=== PATIENT | male | born 1980 | race Hispanic/Latino ===

== ENCOUNTER 2017-03-01 05:46 | Emergency (ER) | payer OTHER ==
[~2017-03-01] VITALS: Ht 190.5 cm; Wt 126.1 kg
[~2017-03-01 05:46] MED LIST: AMOXICILLIN500 M3 PO; BACTRIM DS TAB1 EACH PO; BENZONATATE200 M1 PO; FLAG500 PO; IBUPROFEN800 M1 PO; NASONEX17 GM NASB; PERCOCET 5-3251 EACH PO; VENTOLIN HFA18 GM INH
[2017-03-01 05:52] VITALS: BP 132/80
--- NOTE | 2017-03-01 06:14 | ED DYSPNEA/ASTHMA COMPLAINT ---
History of Present Illness General Chief Complaint: General Adult Stated Complaint: URI, CONGESTION, DIFFICULTY URINATING Source: patient Exam Limitations: no limitations Vital Signs & Intake/Output Vital Signs & Intake/Output Vital Signs Date Time Temp Pulse Resp B/P B/P Pulse O2 O2 Flow FiO2 Mean Ox Delivery Rate 03/01 0552 98.4 89 17 132/80 100 Room Air Allergies Coded Allergies: NO KNOWN ALLERGIES (06/21/16) Reconcile Medications Albuterol Sulfate (Proair Hfa) 90 MCG HFA.AER.AD 2 PUF INH Q4-6 PRN PRN DYSPNEA Albuterol Sulfate (Ventolin Hfa) 18 GM HFA.AER.AD 2 PUF INH Q4-6 PRN PRN WHEEZING/SHORTNESS OF BREATH Benzonatate 200 MG CAPSULE 1 CAP PO TID PRN cough Doxycycline Hyclate 100 MG TABLET 1 TAB PO BID PNEUMONIA Ibuprofen 800 MG TABLET 1 TAB PO Q8 PRN PAIN/fevers Methylprednisolone. (Medrol) 4 MG TAB.DS.PK 1 DP PO AD INFLAMMATION 6 on day 1 then reduce by one tablet daily until gone Mometasone Furoate (Nasonex) 17 GM SPRAY.PUMP 2 SPRAY NASB DAILY PRN sinus congestion/inflammation Oxycodone HCl/Acetaminophen (Percocet 5-325 MG Tablet) 1 EACH TABLET 1-2 TAB PO Q6P PRN PAIN Triage Note: PT TO ED C/O URI S/S. STATES THAT IT FEELS LIKE BRONCHITIS. PT ALSO C/O TROUBLE URINATING. FEELS LIKE HE CANNOT GET A STEADY STREAM, ONLY DRIBBLING. PT ALSO C/O R EAR PAIN. PT STATES HE HAS NOT BEEN ABLE TO USE THE BATHROOM OR HAVE A NORMAL BM FOR A WEEK. Triage Nurses Notes Reviewed? yes Onset: Abrupt Duration: day(s): (FEW) Timing: recent history Severity: mild, moderate Activities at Onset: none Associated Symptoms: cough, wheezing, ANXIETY, ANOREXIA, WEIGHT LOSS HPI: This is a 36-year-old male who presents to the ER with chief complaint of cough, shortness of breath and wheezing for the past few days. He states he's been coughing up some dark brown sputum. He wanted but occasionally smokes cigarettes. He also complains of dysuria and feels like he might be getting an internal herpes outbreak. He also feels very anxious and has had a hard time sleeping. He hasn't been eating in the last several weeks because he has been under stress. He states 2 weeks ago the police rated his house and confiscated a lot of his possessions. 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 He states they didn't find anything but took his vehicles and some jewelry. Secondary to that he has been sleeping. Patient denies any sick contacts or travel. He complains of subjective fevers. He states he didn't has been wearing heavy sweaters and using Vicks VapoRub to attempt to sweat out his cold. History of previous bronchitis. Past History Travel History Traveled to [place] past 21 day No Medical History Any Pertinent Medical History? see below for history Neurological: NONE EENT: NONE Cardiovascular: NONE Respiratory: bronchitis Gastrointestinal: NONE Hepatic: NONE Renal: NONE Musculoskeletal: NONE Psychiatric: cannabis use(0.5 ounces per day) Endocrine: NONE Blood Disorders: NONE CROP ROLLER/Reproductive: genital herpes Surgical History Surgical History: N Psychosocial History What is your primary language [place] Island[place] Tobacco Use: Current Not Daily Family History Hx Contributory? No Review of Systems Review of Systems Constitutional: Denies: chills, fever. EENTM: Reports: no symptoms. Respiratory: Reports: cough, short of breath, sputum production. Cardiovascular: Denies: chest pain, palpitations, peripheral edema. GI: Reports: no symptoms. Genitourinary: Reports: dysuria, frequency, pain. Denies: discharge, hematuria. Musculoskeletal: Denies: back pain, muscle pain, muscle stiffness. Skin: Reports: no symptoms. Neurological/Psychological: Reports: anxiety. Hematologic/Endocrine: Denies: bruising, bleeding, polyuria, polydipsia. Immunologic/Allergic: Denies: splenectomy. All Other Systems: Reviewed and Negative Physical Exam Physical Exam General Appearance: well developed/nourished, alert, awake Head: atraumatic, normal appearance Eyes: Bilateral: normal appearance, PERRL, EOMI. Ears, Nose, Throat: normal pharynx, hearing grossly normal Neck: normal inspection, supple, full range of motion Respiratory: decreased breath sounds, wheezing, respiratory distress (MILD) Cardiovascular: regular rate/rhythm Peripheral Pulses: 2+ radial (R), 2+ radial (L) Gastrointestinal: soft, non-tender, NORMAL EXAMINATION, NO TENDERNESS, NO LESIONS, NO DISCHARGE Extremities: normal inspection, normal capillary refill, normal range of motion, no edema Neurologic/Psych: no motor/sensory deficits, awake, alert, oriented x 3, ANXIOUS Skin: intact, normal color, warm/dry Core Measures ACS in differential dx? No Severe Sepsis Present: No Septic Shock Present: No Progress Differential Diagnosis: bronchitis, pneumonia, UTI, HERPES, KIDNEY STONE, STD Plan of Care: Orders Procedure Date/time Status RT ED ORDERS 03/01 613 Active CHLAMYDIA-GC DNA PROBE 03/01 613 Active URINALYSIS 03/01 613 Complete Current Medications Sig/Nic Start time Last Medication Dose Stop Time Status Admin Azithromycin 1,000 MG ONCE ONE 03/01 715 AC (Zithromax) 03/01 716 Ceftriaxone Sodium 250 MG ONCE ONE 03/01 715 UNir (Rocephin) 03/01 716 Laboratory Tests 03/01/17612: Urine Color YEL, Urine Clarity HAZY H, Urine pH 6.5, Ur Specific [place] 1.020, Urine Protein TRACE H, Urine Ketones NEG, Urine Nitrite NEG, Urine Bilirubin NEG, Urine Urobilinogen 2.0 H, Ur Leukocyte Esterase TRACE H, Ur Microscopic SEDIMENT EXAMINED, Urine RBC 1-3, Urine WBC 5-10 H, Ur Epithelial Cells RARE, Urine Bacteria RARE H, Urine Mucus MANY H, Urine Hemoglobin TRACE-INTACT H, Urine Glucose NEG Microbiology 03/01 613 URINE ROUT: GC DNA Probe - ORD 03/01 613 URINE ROUT: Chlamydia DNA Probe ([facility]) - ORD Initial ED EKG: none Departure Departure Disposition: HOME OR SELF CARE Condition: Stable Clinical Impression Primary Impression: Bronchitis Secondary Impressions: Anxiety Referrals: PATIENT HAS NO PRIMARY CARE DR (PCP/Family) Additional Instructions: Take the pro-air, Medrol Dosepak, DOXYCYCLINE as directed. Please follow up with her doctor. Stop smoking. Return as needed. Departure Forms: Customer Survey General Discharge Information Prescriptions: Current Visit Scripts Methylprednisolone. (Medrol) 1 DP PO AD #1 DP 6 on day 1 then reduce by one tablet daily until gone Albuterol Sulfate (Proair Hfa) 2 PUF INH Q4-6 PRN PRN DYSPNEA #1 INHAL Doxycycline Hyclate 1 TAB PO BID #20 TAB Critical Care Note Critical Care Note Critical Care Time: non-applicable Critical Care Note Critical Care Note Critical Care Time: non-applicable
[2017-03-01] MEDS ORDERED: MEDROL4 M2 PO (06:18)
[2017-03-01] MEDS ORDERED: PROAIR HFA8.5 GM INH (06:18)
[2017-03-01] MEDS ORDERED: ZITHROMAX250 M2 PO (06:18)
[2017-03-01] MEDS ORDERED: DOXYCYCLINE HY100 M4 PO (07:04)
== END 2017-03-01 07:25 ==
LOC: ERH 05:46
DX: J40 Bronchitis, not specified as acute or chronic (principal); F41.9 Anxiety disorder, unspecified; F17.210 Nicotine dependence, cigarettes, uncomplicated
CPT/HCPCS: 1263; 81001; 87491; 87591; 96372; J0456; J0696